=== PATIENT | female | born 1995 | race Caucasian/White ===

== ENCOUNTER 2020-07-29 10:21 | Observation (INO) | payer BC ==
[2020-07-29 10:54] VITALS: BP 116/79; PULSE 84
== END 2020-07-29 11:05 | disposition home or self-care (01) ==
LOC: OB 10:21
PROVIDERS: ADMIT Obstetrics & Gynecology; ATTEND Obstetrics & Gynecology
DX: Z34.03 Encounter for supervision of normal first pregnancy, third trimester (principal); Z3A.39 39 weeks gestation of pregnancy
CPT/HCPCS: 59025; G0378

== ENCOUNTER 2020-08-01 11:57 | Observation (INO) | payer BC ==
[2020-08-01 12:23] VITALS: PULSE 92
[2020-08-01 12:36] VITALS: BP 117/65
== END 2020-08-01 12:41 | disposition home or self-care (01) ==
LOC: OB 11:57
PROVIDERS: ADMIT Family Medicine; ATTEND Family Medicine
DX: Z34.03 Encounter for supervision of normal first pregnancy, third trimester (principal); Z3A.40 40 weeks gestation of pregnancy
CPT/HCPCS: 59025; G0378

== ENCOUNTER 2020-08-04 10:06 | Observation (INO) | payer BC ==
[2020-08-04 10:47] VITALS: BP 122/81; PULSE 86
== END 2020-08-04 11:10 | disposition home or self-care (01) ==
LOC: OB 10:06
PROVIDERS: ADMIT Family Medicine; ATTEND Family Medicine
DX: Z34.03 Encounter for supervision of normal first pregnancy, third trimester (principal); Z3A.40 40 weeks gestation of pregnancy
CPT/HCPCS: 59025; G0378

== ENCOUNTER 2022-08-08 08:53 | Emergency (ER) | payer BC ==
[2022-08-08] MEDS ORDERED: Zofran 4 MG/2 ML VIAL IV ONE (09:26)
[2022-08-08] MEDS ORDERED: Sodium Chloride 0.9% 1000 ML 1,000 ML IV STA (09:26)
--- NOTE | 2022-08-08 09:26 | ERPHSYRPT ---
- History of Present Illness Time Seen by Provider: 08/08/22 09:26 Historian: patient, family Exam Limitations: no limitations Patient Subjective Stated Complaint: Pt thinks that she has food poisoning and has been vomiting and having diarrhea all night Triage Nursing Assessment: Pt brought to the ER by her , yolanda liang, rates upper abdominal pain as 3/10, pain goes across the entire upper abdomen and feels like a menstrual cramp, pt is 25 weeks , pt began getting sick in the morning around 0100 and she last ate yesterday at 1700, pt has been having N&V and diarrhea, denies any other symptoms, pulses normal, skin n/w/d, doesn't appear to be in any distress Physician History: This is a 27-year-old white female who is approximate 25 weeks and presents with several episodes of vomiting and diarrhea. Patient ate hamburgers and hotdogs yesterday and approximately 1:00 this morning began having pain in her upper abdomen and this was followed by the vomiting and diarrhea. Patient thinks she had food poisoning. However, other individuals at the same outing ate the same foods and there was no one that had similar symptoms. Patient states she is never had this type of symptoms since she has been . She has no flank pain. She has no dysuria. She has had no vaginal bleeding. She, at the time of this examination, denies abdominal pain of any kind. She has never had suprapubic or pelvic pain. Timing/Duration: today Activities at Onset: sleep Quality: cramping Abdominal Pain Onset Location: RUQ, LUQ Severity of Pain-Max: mild (To moderate. Moderate when she was actually vomiting) Severity of Pain-Current: none Modifying Factors: Improves With: vomiting Associated Symptoms: diarrhea, loss of appetite, nausea, vomiting Previous symptoms: no prior history Allergies/Adverse Reactions: aspirin Allergy (Verified 08/08/22 09:16) can not have any blood thinners due to bleeding in the brain stem Home Medications: Vit No.179/Iron/Folic [ Tablet] 1 each PO DAILY 08/08/22 [History] Hx Influenza Vaccination/Date Given: No (2020) Hx Pneumococcal Vaccination/Date Given: No Immunizations Up to Date: Yes Travel Risk - International Travel Have you traveled outside of the country in past 3 weeks: No - Coronavirus Screening Are you exhibiting any of the following symptoms?: Yes Symptoms: Vomiting/Diarrhea Close contact with a COVID-19 positive Pt in past 14-21 Days: No - Vaccine Status Have you recieved a Covid-19 vaccination: Yes 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[employer] - Vaccination Dates Date of 2cond Vaccination (if applicable): 2020 - Review of Systems Constitutional: No Symptoms Eyes: No Symptoms Ears, Nose, & Throat: No Symptoms Respiratory: No Symptoms Cardiac: No Symptoms Abdominal/Gastrointestinal: Abdominal Pain, Nausea, Vomiting, Diarrhea, Appetite Changes, No Constipation Genitourinary Symptoms: No Symptoms Musculoskeletal: No Symptoms Skin: No Symptoms Neurological: No Symptoms Psychological: No Symptoms Endocrine: No Symptoms Hematologic/Lymphatic: No Symptoms Immunological/Allergic: No Symptoms All Other Systems: Reviewed and Negative - Past Medical History Pertinent Past Medical History: Yes Other Medical History: 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 cerebral cavernous malformation - Past Surgical History Past Surgical History: No - Social History Smoking Status: Never smoker Exposure to second hand smoke: No Drug Use: none Patient Lives Alone: No - Female History Hx Now: Yes Gestational Age: 25 weeks - Nursing Vital Signs Nursing Vital Signs: Initial Vital Signs Temperature 97.9 F 08/08/22 09:03 Pulse Rate 95 H 08/08/22 09:03 Blood Pressure 116/75 08/08/22 09:03 O2 Sat by Pulse Oximetry 100 08/08/22 09:03 Pain Scale Pain Intensity 3 - Physical Exam General Appearance: no apparent distress, alert, anxiety Eye Exam: PERRL/EOMI, eyes nml inspection Ears, Nose, Throat Exam: normal ENT inspection, moist mucous membranes Neck Exam: normal inspection, non-tender, supple, full range of motion Respiratory Exam: normal breath sounds, lungs clear, No chest tenderness, No respiratory distress Cardiovascular Exam: regular rate/rhythm, normal heart sounds, normal peripheral pulses Gastrointestinal/Abdomen Exam: soft, normal bowel sounds, other ( abdomen), No tenderness Pelvic Exam: not done Rectal Exam: not done Back Exam: normal inspection, normal range of motion, No CVA tenderness, No vertebral tenderness Extremity Exam: normal inspection, normal range of motion, pelvis stable Neurologic Exam: alert, oriented x 3, cooperative, licensing coordinator II-XII nml as tested, normal mood/affect, nml cerebellar function, nml station & gait, sensation nml Skin Exam: normal color, warm, dry Lymphatic Exam: No adenopathy SpO2 Interpretation: normal SpO2: 100 O2 Delivery: Room Air - Course Nursing assessment & vital signs reviewed: Yes Ordered Tests: Active Orders 24 hr Category Date Time Status IV Insertion STAT Care 08/08/22 09:26 Active AMYLASE Stat Lab 08/08/22 09:37 Completed CBC W DIFF Stat Lab 08/08/22 09:37 Completed CMP Stat Lab 08/08/22 09:37 Completed LIPASE Stat Lab 08/08/22 09:37 Completed UA W/RFX UR CULTURE Stat Lab 08/08/22 09:37 Completed Medication Summary Discontinued Medications Generic Name Dose Route Start Last Admin Trade Name Freq PRN Reason Stop Dose Admin Sodium Chloride 1,000 mls @ 999 mls/hr 08/08/22 09:26 08/08/22 09:32 Sodium Chloride 0.9% 1000 Ml IV 08/08/22 10:26 999 mls/hr .Q1H1M STA Administration Sodium Chloride Confirm 08/08/22 09:31 Sodium Chloride 0.9% 1000 Ml Administered 08/08/22 09:32 Dose 1,000 mls @ ud .ROUTE .STK-MED ONE Ondansetron HCl 4 mg 08/08/22 09:26 08/08/22 09:32 Ondansetron Hcl 4 Mg/2 Ml Vial IV 08/08/22 09:27 4 mg STAT ONE Administration Ondansetron HCl Confirm 08/08/22 09:31 Ondansetron Hcl 4 Mg/2 Ml Vial Administered 08/08/22 09:32 Dose 4 mg .ROUTE .STK-MED ONE Lab/Rad Data: Laboratory Result Diagrams 08/08/22 09:37 08/08/22 09:37 Laboratory Results 08/08/22 08/08/22 08/08/22 Range/Units 10:12 09:37 09:37 WBC (4.0-10.5) x10^3/uL RBC (4.1-5.4) x10^6/uL Hgb (12.0-16.0) g/dL Hct (35-47) % MCV (78-100) fL MCH (26-32) pg MCHC (32-36) g/dL RDW (11.5-14.0) % Plt Count (150-450) x10^3/uL MPV (7.5-11.0) fL Gran % (36.0-66.0) % Immature Gran % (Auto) (0.00-0.4) % Nucleat RBC Rel Count (0.00-0.1) % Eos # (Auto) (0-0.5) x10^3/uL Immature Gran # (Auto) (0.00-0.03) x10^3u/L Absolute Lymphs (auto) (1.0-4.6) x10^3/uL Absolute Monos (auto) (0.0-1.3) x10^3/uL Absolute Nucleated RBC (0.00-0.01) x10^3u/L Lymphocytes % (24.0-44.0) % Monocytes % (0.0-12.0) % Eosinophils % (0.00-5.0) % Basophils % (0.0-0.4) % Absolute Granulocytes (1.4-6.9) x10^3/uL Basophils # (0-0.4) x10^3/uL Sodium 135 L (137-145) mmol/L Potassium 4.0 (3.5-5.1) mmol/L Chloride 106 (98-107) mmol/L Carbon Dioxide 20 L (22-30) mmol/L Anion Gap 13.1 (5-15) MEQ/L BUN 10 (7-17) mg/dL Creatinine 0.51 L (0.52-1.04) mg/dL Estimated GFR > 60.0 ML/MIN Glucose 113 H (74-106) mg/dL Calcium 8.1 L (8.4-10.2) mg/dL Total Bilirubin 0.60 (0.2-1.3) mg/dL AST 25 (14-36) U/L ALT 17 (0-35) U/L Alkaline Phosphatase 59 (38-126) U/L Serum Total Protein 7.0 (6.3-8.2) g/dL Albumin 3.7 (3.5-5.0) g/dL Amylase 79 (30-110) U/L Lipase 79 (23-300) U/L Urine Color Yellow (Yellow) Urine Appearance Clear (Clear) Urine pH 7.0 (4.6-8.0) Ur Specific [place] 1.025 (1.005-1.030) Urine Protein Trace A (Negative) Urine Glucose (UA) Negative (Negative) mg/dL Urine Ketones 15 A (Negative) Urine Blood Negative (Negative) Urine Nitrite Negative (Negative) Urine Bilirubin Negative (Negative) Urine Urobilinogen 0.2 (0.2) mg/dL Ur Leukocyte Esterase Negative (Negative) U Hyaline Cast (Auto) NONE SEEN (0-2) /LPF Urine Microscopic RBC 0-2 (0-5) /HPF Urine Microscopic WBC 3-5 (0-5) /HPF Ur Epithelial Cells Few (None Seen) /HPF Urine Bacteria None Seen (None Seen) /HPF Urine Culture Reflexed NO (NO) Influenza Type A Ag NEGATIVE (NEGATIVE) Influenza Type B Ag NEGATIVE (NEGATIVE) RSV (PCR) NEGATIVE (NEGATIVE) SARS-CoV-2 (PCR) NEGATIVE (NEGATIVE) 08/08/22 Range/Units 09:37 WBC 8.4 (4.0-10.5) x10^3/uL RBC 4.04 L (4.1-5.4) x10^6/uL Hgb 12.8 (12.0-16.0) g/dL Hct 37.9 (35-47) % MCV 93.8 (78-100) fL MCH 31.7 (26-32) pg MCHC 33.8 (32-36) g/dL RDW 12.2 (11.5-14.0) % Plt Count 288 (150-450) x10^3/uL MPV 9.6 (7.5-11.0) fL Gran % 86.6 H (36.0-66.0) % Immature Gran % (Auto) 0.4 (0.00-0.4) % Nucleat RBC Rel Count 0.0 (0.00-0.1) % Eos # (Auto) 0 (0-0.5) x10^3/uL Immature Gran # (Auto) 0.03 (0.00-0.03) x10^3u/L Absolute Lymphs (auto) 0.65 L (1.0-4.6) x10^3/uL Absolute Monos (auto) 0.43 (0.0-1.3) x10^3/uL Absolute Nucleated RBC 0.00 (0.00-0.01) x10^3u/L Lymphocytes % 7.7 L (24.0-44.0) % Monocytes % 5.1 (0.0-12.0) % Eosinophils % 0.0 (0.00-5.0) % Basophils % 0.2 (0.0-0.4) % Absolute Granulocytes 7.29 H (1.4-6.9) x10^3/uL Basophils # 0.02 (0-0.4) x10^3/uL Sodium (137-145) mmol/L Potassium (3.5-5.1) mmol/L Chloride (98-107) mmol/L Carbon Dioxide (22-30) mmol/L Anion Gap (5-15) MEQ/L BUN (7-17) mg/dL Creatinine (0.52-1.04) mg/dL Estimated GFR ML/MIN Glucose (74-106) mg/dL Calcium (8.4-10.2) mg/dL Total Bilirubin (0.2-1.3) mg/dL AST (14-36) U/L ALT (0-35) U/L Alkaline Phosphatase (38-126) U/L Serum Total Protein (6.3-8.2) g/dL Albumin (3.5-5.0) g/dL Amylase (30-110) U/L Lipase (23-300) U/L Urine Color (Yellow) Urine Appearance (Clear) Urine pH (4.6-8.0) Ur Specific [place] (1.005-1.030) Urine Protein (Negative) Urine Glucose (UA) (Negative) mg/dL Urine Ketones (Negative) Urine Blood (Negative) Urine Nitrite (Negative) Urine Bilirubin (Negative) Urine Urobilinogen (0.2) mg/dL Ur Leukocyte Esterase (Negative) U Hyaline Cast (Auto) (0-2) /LPF Urine Microscopic RBC (0-5) /HPF Urine Microscopic WBC (0-5) /HPF Ur Epithelial Cells (None Seen) /HPF Urine Bacteria (None Seen) /HPF Urine Culture Reflexed (NO) Influenza Type A Ag (NEGATIVE) Influenza Type B Ag (NEGATIVE) RSV (PCR) (NEGATIVE) SARS-CoV-2 (PCR) (NEGATIVE) - Progress Progress: improved Progress Note: 08/08/22 11:19 Patient states that she is feeling much improved. This patient's medical history is 1 of moderate complexity. Level of complexity in the work-up performed is based on review of the patient's past medical history, review of the patient's medication list, review of the history of present illness and physical findings on examination. The work-up in this patient include COVID/viral testing, placement of intravenous line, infusion of 1 L of normal saline solution, urinalysis, CBC, CMP, amylase and lipase levels. I reviewed the results of this patient's work-up. Patient clinical impression is vomiting and diarrhea during . Clinically she is much improved. We will discharge her home with a prescription for Zofran and have her follow-up with her etched circuit processor today by phone to make a follow-up appointment in the next few days. Counseled pt/family regarding: lab results, diagnosis, need for follow-up Medical Desision Making - Independent Historian Additional History obtained from: Spouse - Diagnostic Testing Diagnostic test were ordered, analyzed, and reviewed by me: Yes - Risk of complications The pt has a mod risk of morbidity or mortality based on: Need for prescription drug management - Departure Departure Disposition: Home Clinical Impression: Vomiting during Condition: Stable Critical Care Time: No Referrals: MIREYA LUGO DO [Family Provider] - Follow up/PCP as directed Additional Instructions: Drink plenty of clear liquids. Call your etched circuit processor today to make arrangements for follow-up appointment in the next 3 days. Take your vitamins and other medications as prescribed. Prescriptions: Ondansetron ODT 4 MG [Zofran Odt 4 mg] 4 mg PO Q6H PRN PRN #10 tablet PRN Reason: Vomiting
[2022-08-08] MEDS ORDERED: Sodium Chloride 0.9% 1000 ML 1,000 ML ONE (09:31)
[2022-08-08] MEDS ORDERED: Zofran 4 MG/2 ML VIAL ONE (09:31)
[2022-08-08 09:39] LABS: Absolute Neutrophil Ct (ANC) 7.29 x10^3/uL (1.4-6.9); BASOPHIL % 0.2 % (0.0-0.4); Basophil (Absolute #) 0.02 x10^3/uL (0-0.4); Eosinophil (Absolute #) 0 x10^3/uL (0-0.5); Hematocrit 37.9 % (35-47); Hemoglobin 12.8 g/dL (12.0-16.0); IMMATURE GRAN # 0.03 x10^3u/L (0.00-0.03); IMMATURE GRAN % 0.4 % (0.00-0.4); Lymphocyte (Absolute #) 0.65 x10^3/uL (1.0-4.6); Lymphocytes % 7.7 % (24.0-44.0); Mean Cell Volume 93.8 fL (78-100); Mean Corpuscular Hemoglobin 31.7 pg (26-32); Mean Corpuscular Hgb Concent. 33.8 g/dL (32-36); Mean Platelet Volume 9.6 fL (7.5-11.0); Monocyte (Absolute #) 0.43 x10^3/uL (0.0-1.3); Monocytes % 5.1 % (0.0-12.0); Neutrophil % 86.6 % (36.0-66.0); Platelet Count 288 x10^3/uL (150-450); Red Blood Count 4.04 x10^6/uL (4.1-5.4); Red Cell Distribution Width 12.2 % (11.5-14.0); White Blood Count 8.4 x10^3/uL (4.0-10.5)
[2022-08-08 09:50] LABS: ALBUMIN 3.7 g/dL (3.5-5.0); ALKALINE PHOSPHATASE 59 U/L (38-126); AMYLASE 79 U/L (30-110); ANION GAP 13.1 MEQ/L (5-15); BLOOD UREA NITROGEN 10 mg/dL (7-17); CHLORIDE 106 mmol/L (98-107); Calcium 8.1 mg/dL (8.4-10.2); Carbon Dioxide 20 mmol/L (22-30); Creatinine 1 0.51 mg/dL (0.52-1.04); EST GLOMERULAR FILTRATION RATE > 60.0 ML/MIN; Glucose 113 mg/dL (74-106); LIPASE 79 U/L (23-300); SGOT/AST 25 U/L (14-36); SGPT/ALT 17 U/L (0-35); SODIUM 135 mmol/L (137-145)
[2022-08-08 09:51] LABS: ADD URINE CULTURE? NO (NO); Appearance Clear (Clear); Bacteria None Seen /HPF (None Seen); Bilirubin Negative (Negative); Blood Negative (Negative); Epithelial Cells Few /HPF (None Seen); Glucose, Urine Negative (Negative); Hyaline Casts NONE SEEN /LPF (0-2); Ketones 15 (Negative); Leukocyte Esterase Negative (Negative); Nitrite Negative (Negative); Protein,Urine Dip Trace (Negative); RBC 0-2 /HPF (0-5); Specific Gravity 1.025 (1.005-1.030); Urobilinogen 0.2 mg/dL (0.2)
[2022-08-08 11:05] LABS: INFLUENZA A NEGATIVE (NEGATIVE); INFLUENZA B NEGATIVE (NEGATIVE); RESPIRATORY SYNCTIAL VIRUS NEGATIVE (NEGATIVE); SARS-CoV-2 Xpert Express NEGATIVE (NEGATIVE)
[2022-08-08 11:29] VITALS: BP 95/58; PULSE 92; O2SAT 99
== END 2022-08-08 11:32 | disposition home or self-care (01) ==
LOC: ED 08:53
DX: O21.2 Late vomiting of pregnancy (principal); Z3A.25 25 weeks gestation of pregnancy; R19.7 Diarrhea, unspecified
CPT/HCPCS: 0241U; 36415; 80053; 81001; 82150; 83690; 85025; 96374; 99283; J2405

== ENCOUNTER 2022-11-10 04:33 | Inpatient (IN) | payer BC ==
[2022-11-10] MEDS ORDERED: Lactated Ringers 1,000 ML IV ONE ×2 (04:42→08:09)
[2022-11-10] MEDS ORDERED: BENADRYL 50 MG/ML IV PRN (04:51)
[2022-11-10] MEDS ORDERED: CLARITIN 10 MG PO PRN (04:51)
[2022-11-10] MEDS ORDERED: Zofran 4 MG/2 ML VIAL IV PRN (04:51)
[2022-11-10] MEDS ORDERED: SOD CITRATE-CITRIC ACID SOLN PO SCH (05:00)
[2022-11-10] MEDS ORDERED: Pepcid 20 MG VIAL IV SCH (05:00)
[2022-11-10] MEDS ORDERED: CEFAZOLIN 2 GM-D5W BAG** 2 GM/50 ML ML IV SCH (05:00)
[2022-11-10] MEDS ORDERED: Reglan 10 MG/2 ML IV SCH (05:00)
[2022-11-10] MEDS ORDERED: LANSINOH 40 GM TOP PRN (05:05)
[2022-11-10 05:41] LABS: Hematocrit 31.5 % (35-47); Hemoglobin 10.1 g/dL (12.0-16.0); Mean Cell Volume 90.5 fL (78-100); Mean Corpuscular Hgb Concent. 32.1 g/dL (32-36); Mean Platelet Volume 9.5 fL (7.5-11.0); Platelet Count 318 x10^3/uL (150-450); Red Blood Count 3.48 x10^6/uL (4.1-5.4); Red Cell Distribution Width 12.6 % (11.5-14.0); White Blood Count 9.1 x10^3/uL (4.0-10.5)
[2022-11-10 05:46] LABS: Appearance Clear (Clear); Bacteria Few /HPF (None Seen); Bilirubin Negative (Negative); Blood Negative (Negative); Epithelial Cells Few /HPF (None Seen); Glucose, Urine Negative (Negative); Hyaline Casts NONE SEEN /LPF (0-2); Ketones 15 (Negative); Leukocyte Esterase Small (Negative); Nitrite Negative (Negative); Protein,Urine Dip Negative (Negative); RBC 0-2 /HPF (0-5); Urobilinogen 0.2 mg/dL (0.2)
[2022-11-10 05:53] LABS: ADD URINE CULTURE? NO (NO)
[2022-11-10 05:58] LABS: Amphetamine,Urine NEGATIVE (NEGATIVE); Barbiturate,Urine NEGATIVE (NEGATIVE); Benzodiazepine,Urine NEGATIVE (NEGATIVE); Cocaine,Urine NEGATIVE (NEGATIVE); Methadone,Urine NEGATIVE (NEGATIVE); Opiate,Urine NEGATIVE (NEGATIVE); PCP,Urine NEGATIVE (NEGATIVE); THC,Urine NEGATIVE (NEGATIVE)
[2022-11-10 06:00] LABS: INR 0.9 (0.8-3.0); PROTIME 9.9 SECONDS (9.4-12.5); PTT 24.1 SECONDS (25.1-36.5)
[2022-11-10 06:40] LABS: ABO TYPING A; Antibody Screen NEGATIVE (NEGATIVE); RH TYPING POSITIVE
[2022-11-10] MEDS: Lactated Ringers 1,000 ML IV ONE ×2 (06:41→07:40)
[2022-11-10] MEDS ORDERED: TUCKS TP PRN (08:00)
[2022-11-10] MEDS ORDERED: DEMEROL 50 MG IV PRN (08:00)
[2022-11-10] MEDS ORDERED: EXPAREL 133 MG/10 ML VIAL IJ ONE (08:05)
[2022-11-10] MEDS ORDERED: Sensorcaine 0.25% 10 ML ONE (08:08)
[2022-11-10] MEDS ORDERED: OFIRMEV 100 ML IV ONE (08:09)
[2022-11-10] MEDS ORDERED: Pitocin 10 UNITS/ML ONE (08:21)
[2022-11-10] MEDS ORDERED: Astramorph-Pf 5 MG/10 ML ONE (08:26)
[2022-11-10] MEDS ORDERED: Ephedrine Sulfate 50 MG/ML ONE (09:37)
[2022-11-10] MEDS ORDERED: PHENYLEPHRINE HCL ONE (09:37)
[2022-11-10] MEDS ORDERED: ROBINUL ONE (09:37)
[2022-11-10] MEDS ORDERED: Adacel Vial IM ONE (10:00)
[2022-11-10] MEDS: Docusate Sodium 100 MG PO SCH ×2 (11:44→22:09)
[2022-11-10] MEDS: FERREX 150 PO SCH (11:44)
[2022-11-10] MEDS ORDERED: PERCOCET TABLET 5/325MG PO PRN (11:56)
[2022-11-10] MEDS ORDERED: Narcan 0.4 MG/ML IV PRN (11:56)
[2022-11-10] MEDS: Dextrose 5%-Lr IV Solution 1000 ML 1,000 ML IV SCH (12:01)
[2022-11-10 14:24] LABS: Appearance Clear (Clear); Bacteria None Seen /HPF (None Seen); Bilirubin Negative (Negative); Blood Negative (Negative); Epithelial Cells Rare /HPF (None Seen); Glucose, Urine Negative (Negative); Hyaline Casts NONE SEEN /LPF (0-2); Ketones 40 (Negative); Leukocyte Esterase Negative (Negative); Nitrite Negative (Negative); Ph 7.5 (4.6-8.0); Protein,Urine Dip Negative (Negative); RBC 0-2 /HPF (0-5); Specific Gravity 1.015 (1.005-1.030); Urobilinogen 0.2 mg/dL (0.2)
[2022-11-10] MEDS: Nubain 10 MG/ML IV PRN ×2 (15:41→23:45)
[2022-11-10] MEDS: CEFAZOLIN 2 GM-D5W BAG** 2 GM/50 ML ML IV SCH (17:58)
[2022-11-10] MEDS: TYLENOL EXTRA STRENGTH 500 MG PO PRN (22:55)
[2022-11-11] MEDS: CEFAZOLIN 2 GM-D5W BAG** 2 GM/50 ML ML IV SCH (01:47)
[2022-11-11] MEDS: TYLENOL EXTRA STRENGTH 500 MG PO PRN ×4 (03:21→16:07)
[2022-11-11 05:43] LABS: Absolute Neutrophil Ct (ANC) 8.01 x10^3/uL (1.4-6.9); BASOPHIL % 0.3 % (0.0-0.4); Basophil (Absolute #) 0.04 x10^3/uL (0-0.4); Eosinophil % 0.6 % (0.00-5.0); Eosinophil (Absolute #) 0.07 x10^3/uL (0-0.5); Hematocrit 28.7 % (35-47); Hemoglobin 9.2 g/dL (12.0-16.0); IMMATURE GRAN # 0.06 x10^3u/L (0.00-0.03); IMMATURE GRAN % 0.5 % (0.00-0.4); Lymphocyte (Absolute #) 2.49 x10^3/uL (1.0-4.6); Lymphocytes % 20.7 % (24.0-44.0); Mean Cell Volume 91.1 fL (78-100); Mean Corpuscular Hemoglobin 29.2 pg (26-32); Mean Corpuscular Hgb Concent. 32.1 g/dL (32-36); Mean Platelet Volume 9.8 fL (7.5-11.0); Monocyte (Absolute #) 1.38 x10^3/uL (0.0-1.3); Monocytes % 11.5 % (0.0-12.0); Neutrophil % 66.4 % (36.0-66.0); Platelet Count 292 x10^3/uL (150-450); Red Blood Count 3.15 x10^6/uL (4.1-5.4); Red Cell Distribution Width 13.2 % (11.5-14.0); White Blood Count 12.1 x10^3/uL (4.0-10.5)
[2022-11-11] MEDS: Dextrose 5%-Lr IV Solution 1000 ML 1,000 ML IV SCH ×2 (08:29→14:44)
[2022-11-11] MEDS: Lactated Ringers 1,000 ML IV SCH ×2 (08:30→14:44)
[2022-11-11] MEDS: Docusate Sodium 100 MG PO SCH ×2 (08:34→20:57)
[2022-11-11] MEDS: FERREX 150 PO SCH (08:34)
--- NOTE | 2022-11-11 09:18 | PCM.NOTE ---
Date and Time: 11/11/22915 Subjective Assessment: pod 1 sp csection pt resting in bed and doing well able to ambulate and tolerate diet vss afebrile abd; soft incision c/d/intact uterus; firm lochia; mild hgb; 9.2 a/p sp csection pod 1 secondary to cerebellar malformation doing well anticipate discharge tomorrow OBJECTIVE DATA Vital Signs: Vital Signs - 24 hr Temp Pulse Resp BP Pulse Ox 11/11/22 08:00 99 F 86 16 100/66 100 11/11/22 07:00 99 11/11/22 06:00 99 11/11/22 05:00 98 11/11/22 04:00 99.1 F 89 18 101/63 99 11/11/22 03:00 99 11/11/22 02:00 98 11/11/22 01:00 98 11/10/22 23:56 99 11/10/22 23:55 98.9 F 83 20 97/57 99 11/10/22 22:58 98 11/10/22 22:00 99 11/10/22 21:00 99 11/10/22 20:00 99.0 F 83 18 100/57 99 11/10/22 18:58 100 11/10/22 18:00 100 11/10/22 16:51 99 11/10/22 16:00 98.8 F 78 18 104/51 99 11/10/22 15:49 99 11/10/22 15:00 97.7 F 90 20 112/68 100 11/10/22 14:51 97 11/10/22 14:29 97.7 F 85 20 117/55 100 11/10/22 14:00 97.7 F 85 20 117/55 100 11/10/22 13:30 97.7 F 77 20 98/52 97 11/10/22 13:00 97.7 F 86 18 92/50 100 11/10/22 12:30 97.7 F 91 H 18 113/62 100 11/10/22 12:00 97.7 F 67 18 111/76 100 11/10/22 11:45 97.7 F 67 18 111/57 100 11/10/22 11:30 97.7 F 73 18 106/63 100 11/10/22 11:15 97.7 F 73 20 106/63 100 11/10/22 11:00 97.7 F 84 20 104/59 100 11/10/22 10:45 97.7 F 77 20 108/56 100 Pain Assessment - Last Documented Pain Intensity [Lower Anterior 2 ] Pain Intensity 6 Pain Scale Used 0-10 Pain Scale Intake and Output: Intake & Output 11/08/22 11/09/22 11/10/22 11/11/22 11:59 11:59 11:59 11:59 Intake Total 5707 Output Total 927 2670 Balance -928 -393 Weight 83.461 kg 82.554 kg Lab Results: Lab Results-Last 24 Hours 11/10/22 11/11/22 Range/Units 09:12 05:21 WBC 12.1 H (4.0-10.5) x10^3/uL RBC 3.15 L (4.1-5.4) x10^6/uL Hgb 9.2 L (12.0-16.0) g/dL Hct 28.7 L (35-47) % MCV 91.1 (78-100) fL MCH 29.2 (26-32) pg MCHC 32.1 (32-36) g/dL RDW 13.2 (11.5-14.0) % Plt Count 292 (150-450) x10^3/uL MPV 9.8 (7.5-11.0) fL Gran % 66.4 H (36.0-66.0) % Immature Gran % (Auto) 0.5 H (0.00-0.4) % Nucleat RBC Rel Count 0.0 (0.00-0.1) % Eos # (Auto) 0.07 (0-0.5) x10^3/uL Immature Gran # (Auto) 0.06 H (0.00-0.03) x10^3u/L Absolute Lymphs (auto) 2.49 (1.0-4.6) x10^3/uL Absolute Monos (auto) 1.38 H (0.0-1.3) x10^3/uL Absolute Nucleated RBC 0.00 (0.00-0.01) x10^3u/L Lymphocytes % 20.7 L (24.0-44.0) % Monocytes % 11.5 (0.0-12.0) % Eosinophils % 0.6 (0.00-5.0) % Basophils % 0.3 (0.0-0.4) % Absolute Granulocytes 8.01 H (1.4-6.9) x10^3/uL Basophils # 0.04 (0-0.4) x10^3/uL Urine Color Yellow (Yellow) Urine Appearance Clear (Clear) Urine pH 7.5 (4.6-8.0) Ur Specific [place] 1.015 (1.005-1.030) Urine Protein Negative (Negative) Urine Glucose (UA) Negative (Negative) mg/dL Urine Ketones 40 A (Negative) Urine Blood Negative (Negative) Urine Nitrite Negative (Negative) Urine Bilirubin Negative (Negative) Urine Urobilinogen 0.2 (0.2) mg/dL Ur Leukocyte Esterase Negative (Negative) U Hyaline Cast (Auto) NONE SEEN (0-2) /LPF Urine Microscopic RBC 0-2 (0-5) /HPF Urine Microscopic WBC 6-10 A (0-5) /HPF Ur Epithelial Cells Rare (None Seen) /HPF Urine Bacteria None Seen (None Seen) /HPF Multi-Disciplinary Progress Notes: Multi-Disciplinary Progress Notes 11/10/22 09:45 Respiratory Note by Zeny Mendoza FOR PER PROTOCOL, SX X2 FOR APPROX 2CC CLEAR MUCUS. NO COMPLICATIONS. Initialized on 11/10/22 09:45 - END OF NOTE Assessment/Plan (1) Status post primary low transverse section Current Visit: Yes Status: Acute Code(s): Z98.891 - HISTORY OF UTERINE SCAR FROM PREVIOUS SURGERY
[2022-11-11 12:40] LABS: RPR Non Reactive (Non Reactive)
[2022-11-11 14:38] VITALS: RESP 17
[2022-11-11] MEDS: NORCO 5/325 MG PO PRN (20:56)
[2022-11-11 21:06] VITALS: O2SAT 98
[2022-11-12] MEDS: NORCO 5/325 MG PO PRN ×2 (00:52→11:06)
[2022-11-12] MEDS: Mylicon 80MG PO PRN ×2 (02:52→09:40)
[2022-11-12 03:12] VITALS: PULSE 88
[2022-11-12 08:23] VITALS: BP 100/65; TEMP 98.6
[2022-11-12] MEDS: FERREX 150 PO SCH (09:40)
[2022-11-12] MEDS: Docusate Sodium 100 MG PO SCH (09:40)
--- NOTE | 2022-11-12 10:23 | PCM.NOTE ---
Date and Time: 11/12/22 1022 Subjective Assessment: pod 1 pt resting in bed and doing well able to ambulate and tolerate diet vss afebrile abd; soft incision c/d/intact uterus; firm lochia; mild a/p sp csection pod 2 dc home today fu office in 2 wks OBJECTIVE DATA Vital Signs: Vital Signs - 24 hr Temp Pulse Resp BP Pulse Ox 11/12/22 08:00 98.6 F 88 100/65 98 11/12/22 02:00 97.7 F 88 116/66 98 11/11/22 20:00 98.4 F 98 H 114/65 98 11/11/22 14:00 100 11/11/22 13:00 100 11/11/22 12:00 98.9 F 93 H 17 99/60 98 11/11/22 11:00 100 Pain Assessment - Last Documented Pain Intensity [Lower Anterior 2 ] Pain Intensity 4 Pain Scale Used 0-10 Pain Scale Intake and Output: Intake & Output 11/09/22 11/10/22 11/11/22 11/12/22 11:59 11:59 11:59 11:59 Intake Total 5707 1600 Output Total 928 6100 Balance -928 -393 1600 Weight 83.461 kg 82.554 kg Lab Results: Lab Results-Last 24 Hours 11/10/22 Range/Units 05:28 RPR Non Reactive (Non Reactive) Assessment/Plan (1) Status post primary low transverse section Current Visit: Yes Status: Acute Code(s): Z98.891 - HISTORY OF UTERINE SCAR FROM PREVIOUS SURGERY
--- NOTE | 2022-11-12 10:28 | PCM.DS ---
Discharge Summary Date of Admission: 11/10/22 04:33 Admitting Physician: MIREYA LUGO DO Consults: Consults on Case 11/10/22 04:51 Notify Anesthesia Provider PRN Notify Anesthesia Provider ROUTINE 11/10/22 08:00 Notify Physician ROUTINE 11/10/22 13:59 Navigation ONCE Primary Care Provider: VALERIANO DODGE Allergies Allergies aspirin Allergy (Verified 08/08/22 09:16) can not have any blood thinners due to bleeding in the brain stem Hospital Summary - Hospital Course Hospital Course: pt admitted on nov 10 at 39 wks gestation for undergoing primary csection secondary to hx of enlarging cerebellar malformation as was advised by her neurosurgeon to undergo. during postop period did well and was able to ambulate and tolerate diet. pt incision c/d/intact and at this time stable for disc harge. pt had stable hgb level at 9.2 and was advised to fu in office in 2 wks. all questions answered to her satisfaction. - Vitals & Intake/Output Vital Signs: Vital Signs Temperature 98.6 F 11/12/22 08:00 Pulse Rate 88 11/12/22 08:00 Respiratory Rate 17 11/11/22 12:00 Blood Pressure 100/65 11/12/22 08:00 O2 Sat by Pulse Oximetry 98 11/12/22 08:00 Intake & Output: Intake & Output 11/09/22 11/10/22 11/11/22 11/12/22 11:59 11:59 11:59 11:59 Intake Total 5707 1600 Output Total 928 6100 Balance -928 -393 1600 Weight 83.461 kg 82.554 kg - Lab Result Diagrams: 11/11/22 05:21 Lab Results-Last 24 Hrs: Lab Results-Last 24 Hours 11/10/22 Range/Units 05:28 RPR Non Reactive (Non Reactive) Micro Results-Entire Visit: Microbiology 11/10/22 09:12 Urine Culture - Final Catherized NO GROWTH - Procedures and Test Procedures and Tests throughout Hospitalization: Therapy Orders & Screens 11/10/22 09:44 Standby ROUTINE Comment: Diagnosis: Post Op Final Diagnosis/Problem List - Final Discharge Diagnosis/Problem (1) Status post primary low transverse section Current Visit: Yes Status: Acute Code(s): Z98.891 - HISTORY OF UTERINE SCAR FROM PREVIOUS SURGERY - Discharge Disposition: Home, Self-Care Condition: Stable Prescriptions: New Oxycodone HCl/Acetaminophen [Percocet 5-325 mg Tablet] 1 each PO Q6H PRN PRN 30 Days #20 tablet MDD 4 PRN Reason: Moderate To Severe Pain No Action Vit No.179/Iron/Folic [ Tablet] 1 each PO DAILY Follow up with: VALERIANO DODGE [Primary Care Provider] - MIREYA LUGO DO [ACTIVE STAFF] - 2 weeks (keep incision clean and dry no heavy lifting should fu in office in 2 wks)
--- NOTE | 2022-11-14 09:13 | OP ---
SURGERY DATE: 11/10/2022 SURGERY TIME: 839 PREOPERATIVE DIAGNOSIS: 1. INTRAUTERINE AT 39 WEEKS GESTATION WITH ENLARGING LEFT CEREBELLAR CAVERNOUS MALFORMATION REQUIRING PRIMARY SECTION. POSTOPERATIVE DIAGNOSIS: 1. INTRAUTERINE AT 39 WEEKS GESTATION WITH ENLARGING LEFT CEREBELLAR CAVERNOUS MALFORMATION REQUIRING PRIMARY SECTION. PROCEDURE: 1. Primary section, low flap transverse uterine incision, Pfannenstiel skin incision. SURGEON: Dr. Camilo Mcrae. FUNERAL PROFESSIONAL: Grace surgical endoscopist. ANESTHESIA: Spinal. QUANTITATIVE BLOOD LOSS: 928 cc. COMPLICATIONS: None. FINDINGS: The risks, benefits, indications, and alternatives of the procedure were reviewed with the patient prior to the procedure. Patient understood the risk of infection, bleeding, bowel injury, bladder injury, ureteral injury, and uterine perforation associated with the surgery and desires to have the surgery as a possible means to alleviate her current medical condition. DESCRIPTION OF PROCEDURE: At this point, the patient was taken to the operating room where she was given her spinal anesthesia and was found to be adequate. She was then prepared and draped in the normal sterile fashion in the dorsal supine position with leftward tilt. A Pfannenstiel skin incision was made with the scalpel and carried through to the underlying layer of fascia with a Bovie. The fascia was then incised in the midline and the incision extended laterally with the Joya scissors. The superior aspect of the fascial incision was then grasped with the Radha clamps, elevated, and the underlying rectus muscles dissected off bluntly. Attention was then turned to the inferior aspect of this incision which in a similar fashion was grasped, tented up with the Radha clamps, and the rectus muscles were dissected off bluntly. The rectus muscles were then in the midline. The peritoneum identified, tented up, and entered sharply with the Metzenbaum scissors. The peritoneal incision was then extended superiorly and inferiorly with good visualization of the bladder. The bladder blade was then inserted and the vesicouterine peritoneum identified, grasped with the pickups, and entered sharply with the Metzenbaum scissors. This incision was then extended laterally and the bladder flap created digitally. The bladder blade was then reinserted and the lower uterine segment incised in the transverse fashion with a scalpel. The uterine incision was then extended laterally with the bandage scissors. The bladder blade was then removed and the 's head was delivered atraumatically. The nose and mouth were suctioned with the bulb suction and the cord clamped and cut. The infant was then handed off to the awaiting nurses. The placenta was then removed manually. The uterus was exteriorized and cleared of all clots and debris. The uterine incision was repaired with 1-0 chromic in a running locked fashion. A second layer of the same suture was used to obtain excellent hemostasis. The uterus was then returned to the abdomen. The gutters were cleared of all clots and the peritoneal muscle closed in an interrupted fashion using 2-0 chromic suture. The fascia was reapproximated with 0 Vicryl in running fashion and the subcutaneous layer was closed with 3-0 Vicryl suture and the skin was closed with absorbable cruz called INSORB. The patient tolerated the procedure well. Sponge, lap, needle, and instrument counts were correct X 2. The patient was then taken to the recovery room in stable condition. The patient delivered a live baby girl at 9:16 AM. 's 9 at 1 minute and 9 at 5 minutes. The weight of the baby was 7 pounds, 7 ounces.
== END 2022-11-12 14:41 | disposition home or self-care (01) | DRG 788 ==
LOC: UNDOADMIN 04:33 → OB 04:33 → UNDODISIN 11-12 14:41 → EDSTATUS 11-14 14:04
PROVIDERS: ADMIT Obstetrics & Gynecology; ATTEND Obstetrics & Gynecology
PROC: 10D00Z1 Extraction of Products of Conception, Low, Open Approach (ICD-10-PCS; principal; 2022-11-10)
DX: O35.00X0 Maternal care for (suspected) central nervous system malformation or damage in fetus, unspecified, not applicable or unspecified (principal); Z3A.39 39 weeks gestation of pregnancy; Z37.0 Single live birth; Z20.828 Contact with and (suspected) exposure to other viral communicable diseases
CPT/HCPCS: 36415; 62322; 64488; 76937; 76942; 80307; 81001; 85025; 85027; 85610; 85730; 86592; 86850; 86900; 86901; 87086; 90471; 90715; 94799; J0690; J1200; J2274; J2300; J2371; J2590; L0625; A9270-GY